=== PATIENT | female | born 1935 | race Caucasian/White ===

== ENCOUNTER 2016-11-20 01:41 | Outpatient (CLI) | payer MEDICARE, MEDICAID ==
[2016-11-20 01:51] LABS: Bilirubin Negative (Negative); Blood, Urine Negative (Negative); Clarity Clear (Clear); Glucose, Urine (Dipstick) Negative (Negative); Leukocyte Trace (Negative); Nitrite Negative (Negative); Protein, Urine (Dipstick) Negative (Neg-Trace); Urobilinogen 0.2 mg/dL (0.2-1.0)
== END 2016-11-20 01:42 | disposition home or self-care (01) ==
LOC: BURMANOR 01:41
PROVIDERS: ATTEND Clinical Nurse Specialist Medical-Surgical
DX: N39.0 Urinary tract infection, site not specified (principal)
CPT/HCPCS: 81003; 87086

== ENCOUNTER 2016-12-26 07:07 | Emergency (ER) | payer MEDICARE, MEDICAID ==
--- NOTE | 2016-12-26 22:39 | RAD ---
RIGHT FOOT THREE VIEWS 12/26/16 Soft tissue swelling is seen, particularly over the dorsum of the forefoot. There is a subtle transv erse fracture of the proximal first metatarsal shaft. There is no displacement. There is no dislocat ion. IMPRESSION: Nondisplaced fracture of the proximal first metatarsal shaft. POS: HOME
--- NOTE | 2016-12-26 23:01 | RAD ---
RIGHT KNEE TWO VIEWS 12/26/16 No fracture was seen. A knee arthroplasty is in place. There is no sign of loosening of the hardware . There does appear to be a small bony fragment at the inferior aspect of the patella. I do not have any prior films to compare with to know if this old or not. As there does not appear to be much sof t tissue swelling in this location, I'd presume it to be most likely old. IMPRESSION: No acute bony findings. See comments above. POS: HOME
== END 2016-12-26 11:00 | disposition home or self-care (01) ==
LOC: BURERS 07:07
DX: S92.314A Nondisplaced fracture of first metatarsal bone, right foot, initial encounter for closed fracture (principal); S80.01XA Contusion of right knee, initial encounter; E66.01 Morbid (severe) obesity due to excess calories; K21.9 Gastro-esophageal reflux disease without esophagitis; I10 Essential (primary) hypertension; F41.9 Anxiety disorder, unspecified; F31.9 Bipolar disorder, unspecified; Z86.73 Personal history of transient ischemic attack (TIA), and cerebral infarction without residual deficits; Z79.899 Other long term (current) drug therapy; W18.11XA Fall from or off toilet without subsequent striking against object, initial encounter

== ENCOUNTER 2017-01-18 16:56 | Emergency (ER) | payer MEDICARE, MEDICAID ==
[2017-01-18 17:52] LABS: #Basophils 0.1 thou/uL (0.0-0.2); #Eosinphils 0.4 thou/uL (0.0-0.7); #Lymphocytes 2.8 thou/uL (1.20-3.40); #Monocytes 0.7 thou/uL (0.11-0.59); %Basophils 1.2 % (0.0-1.0); %Eosinophils 6.3 % (0.0-10.0); %Lymphocytes 39.5 % (21.0-51.0); %Neutrophils 42.9 % (42.0-75.0); Hemoglobin 12.8 g/dL (12.0-16.0); Mean Corpuscular HGB CONC 31.6 g/dL (32.0-36.0); Mean Corpuscular Hemoglobin 31.5 pg (27.0-31.0); Mean Corpuscular Volume 99.7 fl (81.0-99.0); Mean Platelet Volume 8.4 fL (7.4-10.4); Platelet Count 187 thou/uL (130-400); RBC Distribution Width 12.8 % (11.5-14.5); Red Blood Cell (RBC) Count 4.06 mill/uL (4.20-5.40)
[2017-01-18 18:08] LABS: ALT (SGPT) 9 U/L (8-55); AST (SGOT) 14 U/L (5-34); Albumin 3.5 g/dL (3.4-4.8); Alkaline Phosphatase 54 U/L (40-150); Anion Gap 17 mmol/L (10-20); BUN (Urea Nitrogen) 32 mg/dL (9.8-20.1); Bilirubin, Total 0.3 mg/dL (0.2-1.2); Calc. Creatinine Clearance 0 mL/min (70-130); Calcium 9.3 mg/dL (7.8-10.44); Carbon Dioxide 30 mmol/L (23-31); Chloride 95 mmol/L (98-107); Estimated GFR-MDRD 48; Globulin 2.8 g/dL (2.4-3.5); Glucose 86 mg/dL (83-110); Potassium 5.5 mmol/L (3.5-5.1); Protein, Total 6.3 g/dL (6.0-8.3); Sodium 136 mmol/L (136-145)
[2017-01-18 18:25] LABS: Bilirubin Negative (Negative); Blood, Urine Trace (Negative); Clarity Cloudy (Clear); Glucose, Urine (Dipstick) Negative (Negative); Leukocyte Moderate (Negative); Nitrite Negative (Negative); Protein, Urine (Dipstick) Negative (Neg-Trace); Specific Gravity, Urine 1.015 (1.005-1.030); Urobilinogen 0.2 mg/dL (0.2-1.0)
[2017-01-18 18:32] LABS: Bacteria/HPF 3+ HPF (None Seen); RBC/HPF 0-3 HPF (0-3); Squamous Epithelial 0-3 HPF (0-3)
[2017-01-18] MEDS ORDERED: Sulfameth/Trimethoprim DS 800-160mg TAB ONE (19:21)
== END 2017-01-18 19:41 ==
LOC: BURERS 16:56
DX: N30.01 Acute cystitis with hematuria (principal); K21.9 Gastro-esophageal reflux disease without esophagitis; F41.9 Anxiety disorder, unspecified; F31.9 Bipolar disorder, unspecified; I10 Essential (primary) hypertension; Z79.891 Long term (current) use of opiate analgesic; Z79.899 Other long term (current) drug therapy; Z86.73 Personal history of transient ischemic attack (TIA), and cerebral infarction without residual deficits
CPT/HCPCS: 36415; 51701; 80053; 81003; 81015; 83605; 85025; 87086; A4353

== ENCOUNTER 2017-01-22 15:05 | Outpatient (CLI) | payer MEDICARE, MEDICAID ==
--- NOTE | 2017-01-22 22:12 | RAD ---
RIGHT FOOT THREE VIEWS 01/22/17 Comparison is made with the 12/26 study. The fracture of the proximal first metatarsal is healing. Callus is forming around the fracture site. There may be slightly more angulation laterally at the distal fragment than there was before, but the finding is not dramatic. The remainder of the foot appears intact. There is marked soft tissue swell ing, particularly in the forefoot. IMPRESSION: Slowly healing fracture of the proximal first metatarsal. POS: HOME
== END 2017-01-22 15:06 | disposition home or self-care (01) ==
LOC: BURRAD 15:05
PROVIDERS: ATTEND Clinical Nurse Specialist Medical-Surgical
DX: S92.001A Unspecified fracture of right calcaneus, initial encounter for closed fracture (principal); S92.311D Displaced fracture of first metatarsal bone, right foot, subsequent encounter for fracture with routine healing

== ENCOUNTER 2017-02-19 10:09 | Emergency (ER) | payer MEDICARE, MEDICAID ==
--- NOTE | 2017-02-19 10:43 | RAD ---
UPRIGHT PORTABLE CHEST 1 VIEW: Date: 02/19/17 HISTORY: 81-year-old female with dyspnea and hypoxia. COMPARISON: 02/19/17. FINDINGS: Heart size is normal. The lungs are clear. No pneumonia, edema, or pleural effusion. IMPRESSION: No acute intrathoracic disease. Atherosclerosis of aorta with ectasia. Stable from prior study. POS: [facility]
[2017-02-19 10:52] LABS: Clarity Opaque (Clear); Leukocyte Large (Negative); Nitrite Positive (Negative); Protein, Urine (Dipstick) > or equal to 300 mg/dL (Neg-Trace)
[2017-02-19 10:53] LABS: Bacteria/HPF 1+ HPF (None Seen); Bilirubin Negative (Negative); Blood, Urine Moderate (Negative); Glucose, Urine (Dipstick) Negative (Negative); Other Microscopic Description C&S SET UP; Urobilinogen 0.2 mg/dL (0.2-1.0)
[2017-02-19] MEDS ORDERED: Sulfameth/Trimethoprim DS 800-160mg TAB ONE ×2 (11:14)
== END 2017-02-19 11:18 | disposition home or self-care (01) ==
LOC: BURERS 10:09
DX: N39.0 Urinary tract infection, site not specified (principal); I10 Essential (primary) hypertension; F41.9 Anxiety disorder, unspecified; F31.9 Bipolar disorder, unspecified; Z79.899 Other long term (current) drug therapy
CPT/HCPCS: 51701; 71010; 81003; 81015; 87077; 87086; 87186; A4353